=== PATIENT | male | born 1960 | race African-American/Black ===

== ENCOUNTER 2024-03-26 13:19 | Outpatient (AMB) | payer BC, MEDICAID, SELFPAY ==
--- NOTE | 2024-03-26 13:25 | HO.SPINEOV ---
Intake Visit Reasons: ? of malignancy seen on mri. Intake Note: Mr. Eckert is here today c/o low back pain. Recreation Clerk Required: No Assessment & Plan Assessment & Plan (1) Low back pain of over 3 months duration: Code(s): M54.50 - Low back pain, unspecified Category: Medical Plan Dear colleague Thank you for referring Melly Eckert to the office today with a chief complaint of back. HPI: This 64-year-old male who is a longstanding history of back pain. He noticed progression of the last year. He underwent physical therapy that initially helped but then the symptoms returned. Pain is located on the right side of his back. Extension is more painful. He denies radiation down his legs. An MRI of the lumbar spine of 12/24/2023 showed a suspicious bony lesion and S2. He was referred to my office for further evaluation. In the meantime a CT of the pelvis was done on 02/03/2024 which shows no abnormalities. On exam, I see a pleasant male. He is able to actively move his lumbar spine all directions without difficulties. Extension produces mild discomfort on the right side. SI joint provocative tests are negative. Hip exam is negative. Straight leg raise is negative. Impression/Plan: I do not think the minor abnormality seen on MRIs of concern based on the fact that a repeat CT scan several months later show no abnormality. I advised him to return to [facility] the see if they have conservative measures to treat his back pain. Thank you for allowing me to participate in your patients care. total time spent was 30 minutes in counseling ,coordination of plan, personal review of imaging, surgical decision making and subsequent plan Sedrick Wei MD, PhD [facility] Trained Neurosurgeon Director, [facility] [employer] Coding Level of Care Code New Pt Level 3 (37866) Diagnoses Low back pain of over 3 months duration M54.50
== END 2024-03-26 13:45 | disposition home or self-care (01) ==
PROVIDERS: PCP Internal Medicine; Referring Provider Internal Medicine; Visit Provider Neurological Surgery
DX: M54.50 Low back pain, unspecified (principal)
CPT/HCPCS: 99203

== ENCOUNTER → 2024-03-26 13:19 | Outpatient (BNVA) | payer BC, MEDICAID, SELFPAY | PROVIDERS: PCP Internal Medicine; Visit Provider Neurological Surgery ==